=== PATIENT | male | born 1940 | race Caucasian/White ===

== ENCOUNTER 2017-07-01 09:14 | Inpatient (IN) | payer OTHER ==
[2017-07-01 09:57] LABS: ADD MAN DIFF? NO
[2017-07-01 09:58] LABS: BASOPHIL # 0.1 10^3/ul (0.0-0.1); BASOPHILS % 0.9 % (0.0-2.0); EOSINOPHILS # 0.2 10^3/ul (0.0-0.5); EOSINOPHILS % 1.8 % (0.0-7.0); HEMATOCRIT 45.5 % (42.0-52.0); HEMOGLOBIN 15.1 g/dl (14.0-18.0); LYMPHOCYTES # 2.1 10^3/ul (0.8-2.9); MEAN CORPUSCULAR HEMOGLOBIN 30.1 pg (29.0-33.0); MEAN CORPUSCULAR HGB CONC 33.2 g/dl (32.0-37.0); MEAN CORPUSCULAR VOLUME 90.8 fl (82.0-101.0); MEAN PLATELET VOLUME 9.6 fl (7.4-10.4); MONOCYTE # 0.6 10^3/ul (0.3-0.9); MONOCYTES % 6.5 % (0.0-11.0); NEUTROPHIL # 5.9 10^3/ul (1.6-7.5); NEUTROPHILS % 66.4 % (39.0-77.0); PLATELET COUNT 280 10^3/UL (140-415); RED BLOOD COUNT 5.01 10^6/ul (4.70-6.10); RED CELL DISTRIBUTION WIDTH 12.9 % (11.5-14.5)
[2017-07-01 09:58] LABS: WHITE BLOOD COUNT 8.9 10^3/ul (4.8-10.8)
[2017-07-01] MEDS: ASPIRIN 325 MG TAB PO (10:06)
[2017-07-01] MEDS: NITROGLYCERIN (SL) 0.4 MG TAB SL (10:06)
[2017-07-01 10:17] LABS: ANION GAP 16 (8-16); BLOOD UREA NITROGEN 22 mg/dl (7-20); CALCIUM 9.2 mg/dl (8.4-10.2); CARBON DIOXIDE 28 mmol/L (21-31); CHLORIDE 103 mmol/L (97-110); CREATINE KINASE 138 IU/L (23-200); CREATININE 1.13 mg/dl (0.61-1.24); GLUCOSE 104 mg/dl (70-220); POTASSIUM 5.1 mmol/L (3.5-5.1); SODIUM 142 mmol/L (135-144)
[2017-07-01 10:29] LABS: CK INDEX 2.5
[2017-07-01 10:30] LABS: B-TYPE NATRIURETIC PEPTIDE 324 PG/ML (0-450)
[2017-07-01 10:34] LABS: CK-MB 3.47 ng/ml (0.0-2.4)
[2017-07-01 10:36] LABS: TROPONIN-I 0.839 ng/ml (0.000-0.120)
[2017-07-01 10:39] LABS: TROPONIN-I 0.829 ng/ml (0.000-0.120)
[2017-07-01] MEDS ORDERED: ACETAMINOPHEN 325 MG TAB PO (11:30)
[2017-07-01] MEDS ORDERED: ONDANSETRON 4 MG INJ IV (11:30)
[2017-07-01] MEDS: SOD CHLORIDE 0.9% 500 ML IV (14:30)
[2017-07-01 14:32] LABS: CREATINE KINASE 103 IU/L (23-200); D-DIMER 296.04 ng/ml (<460)
[2017-07-01 14:37] LABS: INR 0.92; PROTIME 12.4 Sec (11.9-14.9)
[2017-07-01 14:43] LABS: CK INDEX 2.5
[2017-07-01 14:47] LABS: CK-MB 2.62 ng/ml (0.0-2.4)
[2017-07-01] MEDS: ATORVASTATIN 40 MG TAB PO (21:08)
[2017-07-01] MEDS: METOPROLOL 25 MG TAB PO (21:08)
[2017-07-01] MEDS: ENOXAPARIN 80 MG/0.8 ML SYG SC (21:09)
[2017-07-01 22:36] LABS: CREATINE KINASE 90 IU/L (23-200)
[2017-07-01 22:47] LABS: CK INDEX 2.3
[2017-07-01 22:49] LABS: CK-MB 2.05 ng/ml (0.0-2.4)
[2017-07-02] MEDS: PANTOPRAZOLE (EC) 40 MG TAB PO (05:39)
[2017-07-02] MEDS ORDERED: DIPHENHYDRAMINE 50 MG CAP PO (07:00)
[2017-07-02] MEDS ORDERED: DIAZEPAM 5 MG TAB PO (07:00)
[2017-07-02] MEDS: ASPIRIN 81 MG TAB NGT (08:28)
[2017-07-02] MEDS: METOPROLOL 25 MG TAB PO ×2 (08:28→20:54)
[2017-07-02] MEDS ORDERED: ENOXAPARIN 80 MG/0.8 ML SYG SC (09:00)
[2017-07-02 09:05] LABS: ADD MAN DIFF? NO
[2017-07-02 09:20] LABS: WHITE BLOOD COUNT 8.1 10^3/ul (4.8-10.8)
[2017-07-02 09:20] LABS: BASOPHIL # 0.1 10^3/ul (0.0-0.1); BASOPHILS % 0.9 % (0.0-2.0); EOSINOPHILS # 0.2 10^3/ul (0.0-0.5); EOSINOPHILS % 2.1 % (0.0-7.0); HEMATOCRIT 43.6 % (42.0-52.0); HEMOGLOBIN 14.5 g/dl (14.0-18.0); LYMPHOCYTES # 1.9 10^3/ul (0.8-2.9); LYMPHOCYTES % 23.7 % (15.0-51.0); MEAN CORPUSCULAR HGB CONC 33.3 g/dl (32.0-37.0); MEAN CORPUSCULAR VOLUME 90.1 fl (82.0-101.0); MEAN PLATELET VOLUME 9.4 fl (7.4-10.4); MONOCYTE # 0.5 10^3/ul (0.3-0.9); MONOCYTES % 6.5 % (0.0-11.0); NEUTROPHIL # 5.4 10^3/ul (1.6-7.5); NEUTROPHILS % 66.4 % (39.0-77.0); PLATELET COUNT 289 10^3/UL (140-415); RED BLOOD COUNT 4.84 10^6/ul (4.70-6.10); RED CELL DISTRIBUTION WIDTH 12.8 % (11.5-14.5)
[2017-07-02 09:27] LABS: CREATINE KINASE 83 IU/L (23-200)
[2017-07-02] MEDS ORDERED: LIDOCAINE 1% (MDV) 20 ML INJ (09:27)
[2017-07-02] MEDS ORDERED: MIDAZOLAM 1 MG/ML 2 ML INJ (09:27)
[2017-07-02] MEDS ORDERED: IODIXANOL LOCM 100 ML BTL (09:27)
[2017-07-02] MEDS ORDERED: HEPARIN 1000 UNITS/ML 10 ML INJ (09:27)
[2017-07-02] MEDS ORDERED: NITROGLYCERIN (IC) 100 MCG/ML INJ (09:28)
[2017-07-02] MEDS ORDERED: FENTAnyl 50 MCG/ML VIAL (09:28)
[2017-07-02] MEDS ORDERED: VERAPAMIL 5 MG INJ (09:28)
[2017-07-02] MEDS ORDERED: SOD CHLORIDE 0.9% 500 ML (09:29)
[2017-07-02 09:34] LABS: ALANINE AMINOTRANSFERASE 39 IU/L (13-69); ALBUMIN 4.3 g/dl (3.3-4.9); ALBUMIN/GLOBULIN RATIO 1.22; ALKALINE PHOSPHATASE 90 IU/L (42-121); ANION GAP 13 (8-16); ASPARTATE AMINO TRANSFERASE 40 IU/L (15-46); BILIRUBIN,INDIRECT 0.5 mg/dl (0-1.1); BILIRUBIN,TOTAL 0.5 mg/dl (0.2-1.3); BLOOD UREA NITROGEN 19 mg/dl (7-20); CALCIUM 9.3 mg/dl (8.4-10.2); CARBON DIOXIDE 31 mmol/L (21-31); CHLORIDE 101 mmol/L (97-110); CHOL/HDL RATIO 4.8 RATIO; CHOLESTEROL 146 mg/dl (100-200); CREATININE 1.15 mg/dl (0.61-1.24); GLUCOSE 108 mg/dl (70-220); HDL CHOLESTEROL 30 mg/dl (31-75); LDL CHOLESTEROL,CALCULATED 75 mg/dl; POTASSIUM 4.7 mmol/L (3.5-5.1); SODIUM 140 mmol/L (135-144); TOTAL PROTEIN 7.8 g/dl (6.1-8.1); TRIGLYCERIDES 205 mg/dl (0-149)
[2017-07-02 09:37] LABS: CK INDEX 2.2
[2017-07-02 09:41] LABS: FREE T4 (FREE THYROXINE) 1.29 ng/dl (0.78-2.44)
[2017-07-02 09:42] LABS: CK-MB 1.85 ng/ml (0.0-2.4)
[2017-07-02] MEDS: SOD CHLORIDE 0.9% 1,000 ML IV (10:48)
[2017-07-02 12:15] LABS: ADD MAN DIFF? NO
[2017-07-02 12:19] LABS: WHITE BLOOD COUNT 8.7 10^3/ul (4.8-10.8)
[2017-07-02 12:19] LABS: BASOPHIL # 0.1 10^3/ul (0.0-0.1); BASOPHILS % 0.8 % (0.0-2.0); EOSINOPHILS # 0.1 10^3/ul (0.0-0.5); EOSINOPHILS % 1.3 % (0.0-7.0); HEMATOCRIT 43.3 % (42.0-52.0); HEMOGLOBIN 14.4 g/dl (14.0-18.0); LYMPHOCYTES # 1.7 10^3/ul (0.8-2.9); LYMPHOCYTES % 19.6 % (15.0-51.0); MEAN CORPUSCULAR HEMOGLOBIN 30.1 pg (29.0-33.0); MEAN CORPUSCULAR HGB CONC 33.3 g/dl (32.0-37.0); MEAN CORPUSCULAR VOLUME 90.6 fl (82.0-101.0); MEAN PLATELET VOLUME 9.1 fl (7.4-10.4); MONOCYTE # 0.4 10^3/ul (0.3-0.9); NEUTROPHIL # 6.4 10^3/ul (1.6-7.5); PLATELET COUNT 272 10^3/UL (140-415); RED BLOOD COUNT 4.78 10^6/ul (4.70-6.10); RED CELL DISTRIBUTION WIDTH 12.7 % (11.5-14.5)
[2017-07-02] MEDS: HEPARIN 1000 UNITS/ML 10 ML INJ IV (12:30)
[2017-07-02] MEDS ORDERED: HEPARIN 1000 UNITS/ML 10 ML INJ IV (12:30)
[2017-07-02 12:34] LABS: CREATINE KINASE 75 IU/L (23-200)
[2017-07-02 12:47] LABS: CK INDEX 2.1; CK-MB 1.58 ng/ml (0.0-2.4)
[2017-07-02 12:57] LABS: INR 1.02; PROTIME 13.5 Sec (11.9-14.9); PT RATIO 1.1
[2017-07-02 13:05] LABS: PARTIAL THROMBOPLASTIN TIME 102.5 Sec (25.0-35.0)
[2017-07-02] MEDS: HEPARIN 25000 UNITS/250 ML 250 ML IV (14:15)
[2017-07-02] MEDS: ATORVASTATIN 40 MG TAB PO (20:53)
[2017-07-02 23:03] LABS: CREATINE KINASE 63 IU/L (23-200)
[2017-07-02 23:14] LABS: CK INDEX 1.9
[2017-07-02 23:15] LABS: CK-MB 1.22 ng/ml (0.0-2.4)
[2017-07-03 05:50] LABS: ADD MAN DIFF? NO
[2017-07-03 05:52] LABS: WHITE BLOOD COUNT 9.5 10^3/ul (4.8-10.8)
[2017-07-03 05:52] LABS: BASOPHIL # 0.1 10^3/ul (0.0-0.1); BASOPHILS % 0.5 % (0.0-2.0); EOSINOPHILS # 0.2 10^3/ul (0.0-0.5); EOSINOPHILS % 1.8 % (0.0-7.0); HEMATOCRIT 40.1 % (42.0-52.0); HEMOGLOBIN 13.4 g/dl (14.0-18.0); LYMPHOCYTES # 2.2 10^3/ul (0.8-2.9); LYMPHOCYTES % 22.7 % (15.0-51.0); MEAN CORPUSCULAR HGB CONC 33.4 g/dl (32.0-37.0); MEAN CORPUSCULAR VOLUME 89.9 fl (82.0-101.0); MEAN PLATELET VOLUME 9.1 fl (7.4-10.4); MONOCYTE # 0.7 10^3/ul (0.3-0.9); MONOCYTES % 7.6 % (0.0-11.0); NEUTROPHIL # 6.4 10^3/ul (1.6-7.5); NEUTROPHILS % 67.1 % (39.0-77.0); PLATELET COUNT 243 10^3/UL (140-415); RED BLOOD COUNT 4.46 10^6/ul (4.70-6.10); RED CELL DISTRIBUTION WIDTH 12.6 % (11.5-14.5)
[2017-07-03 06:14] LABS: ANION GAP 14 (8-16); BLOOD UREA NITROGEN 18 mg/dl (7-20); CALCIUM 8.4 mg/dl (8.4-10.2); CARBON DIOXIDE 26 mmol/L (21-31); CHLORIDE 105 mmol/L (97-110); CREATININE 0.97 mg/dl (0.61-1.24); GLUCOSE 106 mg/dl (70-220); MAGNESIUM 1.8 mg/dl (1.7-2.5); SODIUM 141 mmol/L (135-144)
[2017-07-03 06:18] LABS: INR 0.99; PROTIME 13.2 Sec (11.9-14.9)
[2017-07-03 06:22] LABS: PARTIAL THROMBOPLASTIN TIME 81.5 Sec (25.0-35.0)
[2017-07-03] MEDS: PANTOPRAZOLE (EC) 40 MG TAB PO (06:29)
[2017-07-03 06:37] LABS: CK-MB 1.12 ng/ml (0.0-2.4)
[2017-07-03 06:42] LABS: CK INDEX 1.9; CREATINE KINASE 59 IU/L (23-200)
[2017-07-03] MEDS ORDERED: TRANEXAMIC ACID 1,000 MG/10 ML VIAL (07:00)
[2017-07-03] MEDS ORDERED: ROCURONIUM 50 MG INJ ×2 (07:00→13:29)
[2017-07-03] MEDS ORDERED: MILRINONE LACTATE 20 MG/D5W 100 ML BAG (07:00)
[2017-07-03] MEDS: ASPIRIN 81 MG TAB NGT (07:50)
[2017-07-03] MEDS: METOPROLOL 25 MG TAB PO ×2 (07:52→11:22)
[2017-07-03] MEDS ORDERED: MAGNESIUM SULFATE 2 GM/50 ML 50 ML IVPB (08:30)
[2017-07-03] MEDS: MAGNESIUM SULFATE 1 GM/D5W 100 ML IVPB (08:50)
[2017-07-03] MEDS ORDERED: MILRINONE LACTATE 100 ML (13:20)
[2017-07-03] MEDS ORDERED: SODIUM CL BACTERIOSTATIC 30 ML INJ (13:26)
[2017-07-03] MEDS ORDERED: LIDOCAINE 2% (SDV) 5 ML INJ (13:29)
[2017-07-03] MEDS ORDERED: ETOMIDATE 20 MG INJ (13:29)
[2017-07-03] MEDS ORDERED: EPINEPHrine 4 MG in DEXTROSE 5% 246 ML IV (13:30)
[2017-07-03] MEDS ORDERED: SUCCINYLCHOLINE CHLORIDE 100 MG/5 ML SYG IV (13:30)
[2017-07-03] MEDS ORDERED: PHENYLephrine 20MG IN 250 ML 250 ML IV (13:30)
[2017-07-03] MEDS ORDERED: INSULIN HUMAN REGULAR 100 UNIT in SOD CHLORIDE 0.9% 99 ML IV (13:30)
[2017-07-03] MEDS ORDERED: MIDAZOLAM 5 ML ×2 (13:31)
[2017-07-03] MEDS ORDERED: HEPARIN 1000 UNITS/ML 10 ML INJ ×3 (13:36→16:46)
[2017-07-03] MEDS ORDERED: CEFAZOLIN 1 GM INJ (13:39)
[2017-07-03] MEDS ORDERED: NITROGLYCERIN 50 MG/D5W (PMX) 250 ML ×2 (13:41→20:27)
[2017-07-03] MEDS ORDERED: ALBUMIN HUMAN 25% 300 ML (13:41)
[2017-07-03] MEDS ORDERED: ALBUMIN HUMAN 25% 100 ML (13:53)
[2017-07-03] MEDS ORDERED: MANNITOL 20% 250 ML IV (13:53)
[2017-07-03] MEDS ORDERED: CA CHLORIDE 10% 10 ML SYRINGE (13:53)
[2017-07-03] MEDS ORDERED: NA BICARBONATE 8.4% 50 ML SYG ×2 (13:53→19:07)
[2017-07-03] MEDS ORDERED: MAGNESIUM SULFATE (MG) 50% 10 ML INJ (13:53)
[2017-07-03] MEDS ORDERED: PHENYLephrine 10 MG INJ (13:53)
[2017-07-03] MEDS ORDERED: LIDOCAINE 100 MG SYRINGE (13:53)
[2017-07-03] MEDS ORDERED: POTASSIUM CHLORIDE 40 MEQ INJ (13:53)
[2017-07-03] MEDS ORDERED: FUROSEMIDE 20 MG INJ (13:54)
[2017-07-03] MEDS ORDERED: NORepinephrine 8MG/250 ML (PMX 250 ML IV (14:00)
[2017-07-03] MEDS: HEPARIN 1000 UNITS/ML 10 ML INJ (15:43)
[2017-07-03] MEDS: PAPAVERINE 60 MG INJ (16:00)
[2017-07-03] MEDS ORDERED: PROTAMINE 250 MG INJ (16:28)
[2017-07-03] MEDS: GELATIN SIZE 100 SPONGE (17:49)
[2017-07-03] MEDS: VANCOMYCIN 1 GM INJ (17:49)
[2017-07-03 18:42] LABS: TYPE AND SCREEN 1
[2017-07-03 19:27] LABS: IMMEDIATE SPIN CROSSMATCH 1 7
[2017-07-03] MEDS ORDERED: PHENYLephrine (100 MCG/ML) 5ML SYG (19:31)
[2017-07-03] MEDS ORDERED: nitroGLYCerin 50 MG INJ (20:30)
[2017-07-03] MEDS ORDERED: morphine 10 MG INJ ×2 (20:53→21:10)
[2017-07-03] MEDS: ATORVASTATIN 40 MG TAB PO (21:00)
[2017-07-03 22:54] LABS: CREATINE KINASE 408 IU/L (23-200)
[2017-07-03 23:07] LABS: CK INDEX 4.2
[2017-07-03 23:20] LABS: Arterial Blood Gas Oxygen Sat 65.2 mmHG (95.0-100.0); Arterial COHb 0.3 % (0.0-3.0); Arterial Fraction of Oxyhgb 64.4 % (93.0-99.0); Arterial MetHb 0.9 % (0.0-1.5); Arterial Total Hemglobin 11.5 g/dl (12.0-18.0); MODE VENT - AC; MetHgb Mixed Venous 0.9 %; Mixed Venous COHb 0.3 %; Mixed Venous Fraction OxyHgb 64.4 %; Mixed Venous Oxygen Sat 65.2 mmHG (65.0-75.0); Mixed Venous Total Hemglobin 11.5 g/dl; Sample Type BLMV; Site A-Line
[2017-07-03 23:26] LABS: AADO2 Arterial 424.8 mmHg (7.0-24.0); Arterial Base Excess -4.5 mmol/L (-3.0-3); Arterial COHb 0.3 % (0.0-3.0); Arterial Fraction of Oxyhgb 95.8 % (93.0-99.0); Arterial HCO3 20.8 mmol/L (22.0-26.0); Arterial MetHb 0.9 % (0.0-1.5); Arterial Total Hemglobin 12.3 g/dl (12.0-18.0); Arterial pCO2 39.2 mmhg (35-45); MODE VENT - AC; Site A-Line
[2017-07-03] MEDS ORDERED: niCARdipine-NS 0.1MG/ML DRIP 200 ML IV (23:30)
[2017-07-03 23:56] LABS: ADD MAN DIFF? NO
[2017-07-03 23:57] LABS: BASOPHILS % 0.4 % (0.0-2.0); HEMATOCRIT 32.6 % (42.0-52.0); LYMPHOCYTES % 9.7 % (15.0-51.0); MEAN CORPUSCULAR HEMOGLOBIN 30.5 pg (29.0-33.0); MEAN CORPUSCULAR HGB CONC 33.7 g/dl (32.0-37.0); MEAN CORPUSCULAR VOLUME 90.3 fl (82.0-101.0); MEAN PLATELET VOLUME 9.9 fl (7.4-10.4); MONOCYTE # 0.6 10^3/ul (0.3-0.9); MONOCYTES % 5.1 % (0.0-11.0); NEUTROPHILS % 84.4 % (39.0-77.0); PLATELET COUNT 150 10^3/UL (140-415); RED BLOOD COUNT 3.61 10^6/ul (4.70-6.10); RED CELL DISTRIBUTION WIDTH 13.2 % (11.5-14.5)
[2017-07-03 23:57] LABS: WHITE BLOOD COUNT 10.7 10^3/ul (4.8-10.8)
[2017-07-04 00:09] LABS: INR 1.28; PROTIME 16.2 Sec (11.9-14.9); PT RATIO 1.3
[2017-07-04 00:10] LABS: PARTIAL THROMBOPLASTIN TIME 40.5 Sec (25.0-35.0)
[2017-07-04 00:12] LABS: ANION GAP 20 (8-16); BLOOD UREA NITROGEN 16 mg/dl (7-20); CALCIUM 10.9 mg/dl (8.4-10.2); CARBON DIOXIDE 24 mmol/L (21-31); CHLORIDE 106 mmol/L (97-110); CREATININE 1.28 mg/dl (0.61-1.24); GLUCOSE 155 mg/dl (70-220); MAGNESIUM 2.6 mg/dl (1.7-2.5); PHOSPHORUS 3.2 mg/dl (2.5-4.9); POTASSIUM 4.4 mmol/L (3.5-5.1); SODIUM 146 mmol/L (135-144)
[2017-07-04] MEDS ORDERED: NITROGLYCERIN 50 MG/D5W (PMX) 250 ML (00:24)
[2017-07-04] MEDS ORDERED: POTASSIUM CHLORIDE 40 MEQ in DEXTROSE 5%-0.225% NACL 1,000 ML IV (00:30)
[2017-07-04] MEDS ORDERED: DEXTROSE 50% 50 ML SYRINGE IV ×2 (00:30)
[2017-07-04] MEDS: NITROGLYCERIN 50 MG/D5W (PMX) 250 ML IV (00:38)
[2017-07-04] MEDS: CEFAZOLIN 1 GM/50 ML (PMX) 50 ML IVPB ×3 (00:51→17:15)
[2017-07-04] MEDS: DEXTROSE 5%-0.45% NACL 1,000 ML IV ×3 (00:54→21:00)
[2017-07-04] MEDS: ACCU-CHEK XX ×23 (00:54→23:00)
[2017-07-04] MEDS: INSULIN HUMAN REGULAR 100 UNIT in SOD CHLORIDE 0.9% 99 ML IV ×2 (01:37→16:53)
[2017-07-04] MEDS: PROPOFOL 100 ML IV ×4 (04:08→21:28)
[2017-07-04] MEDS: MILRINONE LACTATE 100 ML IV ×2 (04:25→23:18)
[2017-07-04 05:13] LABS: ADD MAN DIFF? NO
[2017-07-04] MEDS ORDERED: ALBUMIN HUMAN 5% 500 ML ×2 (05:21→17:14)
[2017-07-04] MEDS: ALBUMIN HUMAN 5% 250 ML IV ×6 (05:32→18:00)
[2017-07-04 05:35] LABS: INR 1.18; PROTIME 15.2 Sec (11.9-14.9); PT RATIO 1.2
[2017-07-04 05:36] LABS: WHITE BLOOD COUNT 10.4 10^3/ul (4.8-10.8)
[2017-07-04 05:36] LABS: ABNORMAL IP MESSAGE 1; BASOPHILS % 0.3 % (0.0-2.0); HEMATOCRIT 29.6 % (42.0-52.0); HEMOGLOBIN 10.2 g/dl (14.0-18.0); LYMPHOCYTES # 0.6 10^3/ul (0.8-2.9); LYMPHOCYTES % 5.7 % (15.0-51.0); MEAN CORPUSCULAR HEMOGLOBIN 30.3 pg (29.0-33.0); MEAN CORPUSCULAR HGB CONC 34.5 g/dl (32.0-37.0); MEAN CORPUSCULAR VOLUME 87.8 fl (82.0-101.0); MEAN PLATELET VOLUME 9.9 fl (7.4-10.4); MONOCYTE # 0.8 10^3/ul (0.3-0.9); MONOCYTES % 7.3 % (0.0-11.0); NEUTROPHILS % 86.3 % (39.0-77.0); PARTIAL THROMBOPLASTIN TIME 53.4 Sec (25.0-35.0); PLATELET COUNT 166 10^3/UL (140-415); POSITIVE DIFF @See below; RED BLOOD COUNT 3.37 10^6/ul (4.70-6.10); RED CELL DISTRIBUTION WIDTH 13.7 % (11.5-14.5)
[2017-07-04 05:37] LABS: ALANINE AMINOTRANSFERASE 35 IU/L (13-69); ALBUMIN 3.6 g/dl (3.3-4.9); ALBUMIN/GLOBULIN RATIO 1.56; ALKALINE PHOSPHATASE 47 IU/L (42-121); ANION GAP 17 (8-16); ASPARTATE AMINO TRANSFERASE 65 IU/L (15-46); BILIRUBIN,INDIRECT 1.2 mg/dl (0-1.1); BILIRUBIN,TOTAL 1.2 mg/dl (0.2-1.3); BLOOD UREA NITROGEN 21 mg/dl (7-20); CALCIUM 9.9 mg/dl (8.4-10.2); CARBON DIOXIDE 26 mmol/L (21-31); CHLORIDE 105 mmol/L (97-110); CREATININE 1.78 mg/dl (0.61-1.24); GLUCOSE 167 mg/dl (70-220); MAGNESIUM 2.3 mg/dl (1.7-2.5); POTASSIUM 4.3 mmol/L (3.5-5.1); SODIUM 144 mmol/L (135-144); TOTAL PROTEIN 5.9 g/dl (6.1-8.1)
[2017-07-04 05:38] LABS: CREATINE KINASE 574 IU/L (23-200)
[2017-07-04] MEDS: PANTOPRAZOLE (EC) 40 MG TAB PO (05:40)
[2017-07-04] MEDS: ACETAMINOPHEN 325 MG TAB PO ×2 (05:41→14:54)
[2017-07-04 05:45] LABS: CK INDEX 2.6
[2017-07-04] MEDS: morphine 2 MG INJ IV ×5 (07:38→20:29)
[2017-07-04 07:53] LABS: BAND NEUTROPHILS #M 2.2 10^3/ul (0.0-0.6); BAND NEUTROPHILS % (M) 22 % (0-4); ERYTHROBLAST% (NRBC) (M) 2 % (0-0); LYMPHOCYTES #M 1.1 10^3/ul (0.8-2.9); LYMPHOCYTES % (M) 11 % (15-51); MONOCYTE #M 0.3 10^3/ul (0.3-0.9); MONOCYTES % (M) 3 % (0-11); PLATELET ESTIMATE NORMAL; REACTIVE LYMPHOCYTES #M 0.1 10^3/ul (0.0-0.0); REACTIVE LYMPHOCYTES% (M) 1 % (0-0); SEG NEUT #M 6.8 10^3/ul (1.6-7.5); SEGMENTED NEUTROPHILS (M) % 63 % (39-77); SMUDGE%M 9 % (0-0)
[2017-07-04 08:27] LABS: AADO2 Arterial 239.1 mmHg (7.0-24.0); Arterial Base Excess -2.5 mmol/L (-3.0-3); Arterial Blood Gas Oxygen Sat 98.1 mmHG (95.0-100.0); Arterial COHb 0.3 % (0.0-3.0); Arterial Fraction of Oxyhgb 97.3 % (93.0-99.0); Arterial HCO3 21.4 mmol/L (22.0-26.0); Arterial MetHb 0.5 % (0.0-1.5); Arterial Total Hemglobin 10.4 g/dl (12.0-18.0); Arterial pCO2 33.6 mmhg (35-45); MODE VENT - AC; Site A-Line
[2017-07-04] MEDS: ASPIRIN 81 MG TAB NGT (08:40)
[2017-07-04] MEDS: METOPROLOL 25 MG TAB PO ×2 (08:40→21:10)
[2017-07-04 12:02] LABS: CREATINE KINASE 486 IU/L (23-200)
[2017-07-04 12:09] LABS: CK INDEX 1.7
[2017-07-04 12:18] LABS: CK-MB 8.47 ng/ml (0.0-2.4)
[2017-07-04] MEDS: ATORVASTATIN 40 MG TAB PO (21:10)
[2017-07-05] MEDS: morphine 2 MG INJ IV ×4 (00:16→22:34)
[2017-07-05] MEDS: ACCU-CHEK XX ×24 (01:04→23:11)
[2017-07-05] MEDS: NITROGLYCERIN 50 MG/D5W (PMX) 250 ML IV (04:03)
[2017-07-05 04:44] LABS: ADD MAN DIFF? NO
[2017-07-05 05:02] LABS: ANION GAP 16 (8-16); BLOOD UREA NITROGEN 33 mg/dl (7-20); CALCIUM 8.3 mg/dl (8.4-10.2); CARBON DIOXIDE 27 mmol/L (21-31); CHLORIDE 107 mmol/L (97-110); CREATININE 1.83 mg/dl (0.61-1.24); GLUCOSE 123 mg/dl (70-220); POTASSIUM 4.5 mmol/L (3.5-5.1); SODIUM 145 mmol/L (135-144)
[2017-07-05 05:10] LABS: Arterial Base Excess -1.8 mmol/L (-3.0-3); Arterial COHb 0.3 % (0.0-3.0); Arterial Fraction of Oxyhgb 93.3 % (93.0-99.0); Arterial HCO3 22.1 mmol/L (22.0-26.0); Arterial MetHb 0.4 % (0.0-1.5); Arterial Total Hemglobin 8.9 g/dl (12.0-18.0); Arterial pCO2 33.9 mmhg (35-45); MODE VENT - AC; Site A-Line
[2017-07-05 05:23] LABS: WHITE BLOOD COUNT 7.6 10^3/ul (4.8-10.8)
[2017-07-05 05:23] LABS: ABNORMAL IP MESSAGE 1; BASOPHILS % 0.3 % (0.0-2.0); EOSINOPHILS % 0.5 % (0.0-7.0); HEMATOCRIT 24.4 % (42.0-52.0); HEMOGLOBIN 8.2 g/dl (14.0-18.0); LYMPHOCYTES # 0.9 10^3/ul (0.8-2.9); LYMPHOCYTES % 11.7 % (15.0-51.0); MEAN CORPUSCULAR HEMOGLOBIN 30.1 pg (29.0-33.0); MEAN CORPUSCULAR HGB CONC 33.6 g/dl (32.0-37.0); MEAN CORPUSCULAR VOLUME 89.7 fl (82.0-101.0); MEAN PLATELET VOLUME 9.7 fl (7.4-10.4); MONOCYTE # 0.8 10^3/ul (0.3-0.9); MONOCYTES % 10.6 % (0.0-11.0); NEUTROPHIL # 5.9 10^3/ul (1.6-7.5); NEUTROPHILS % 76.8 % (39.0-77.0); PLATELET COUNT 92 10^3/UL (140-415); POSITIVE DIFF @See below; RED BLOOD COUNT 2.72 10^6/ul (4.70-6.10); RED CELL DISTRIBUTION WIDTH 14.4 % (11.5-14.5)
[2017-07-05] MEDS: PANTOPRAZOLE (EC) 40 MG TAB PO (06:14)
[2017-07-05] MEDS ORDERED: hydrALAzine 20 MG INJ (06:50)
[2017-07-05 06:57] LABS: MAGNESIUM 2.1 mg/dl (1.7-2.5)
[2017-07-05] MEDS: hydrALAzine 20 MG INJ IV (07:15)
[2017-07-05] MEDS: METOPROLOL 50 MG TAB PO ×2 (09:03→20:28)
[2017-07-05] MEDS: ASPIRIN 81 MG TAB NGT (09:03)
[2017-07-05] MEDS: ACETAMINOPHEN 325 MG TAB PO ×3 (09:51→22:03)
[2017-07-05] MEDS ORDERED: FUROSEMIDE 20 MG INJ IV (12:30)
[2017-07-05 12:52] LABS: IMMEDIATE SPIN CROSSMATCH 1
[2017-07-05] MEDS: PROPOFOL 100 ML IV ×2 (14:30→18:45)
[2017-07-05 14:57] LABS: SODIUM,URINE RANDOM 24 mmol/L (30-90)
[2017-07-05 14:57] LABS: CREATININE,URINE RANDOM 235.73 mg/dl (20-370)
[2017-07-05] MEDS: ALBUMIN HUMAN 25% 50 ML IV (15:05)
[2017-07-05] MEDS: FUROSEMIDE 40 MG INJ IV (15:38)
[2017-07-05] MEDS: DEXTROSE 5%-0.45% NACL 1,000 ML IV (17:48)
[2017-07-05] MEDS: SOD FERRIC GLUC COMPLX 125 MG in SOD CHLORIDE 0.9% 100 ML IVPB (18:45)
[2017-07-05 19:52] LABS: HEMATOCRIT 27.7 % (42.0-52.0); HEMOGLOBIN 9.4 g/dl (14.0-18.0)
[2017-07-05] MEDS: ATORVASTATIN 40 MG TAB PO (20:28)
[2017-07-05] MEDS: EPOETIN 3000 UNITS/ML (NON ESRD/NON ONCOLOGY) SC (21:13)
[2017-07-06] MEDS: ACCU-CHEK XX ×18 (01:07→17:11)
[2017-07-06 05:18] LABS: ADD MAN DIFF? NO
[2017-07-06 05:25] LABS: ABNORMAL IP MESSAGE 1; BASOPHILS % 0.1 % (0.0-2.0); EOSINOPHILS # 0.1 10^3/ul (0.0-0.5); EOSINOPHILS % 0.9 % (0.0-7.0); HEMATOCRIT 26.9 % (42.0-52.0); LYMPHOCYTES # 0.7 10^3/ul (0.8-2.9); LYMPHOCYTES % 10.5 % (15.0-51.0); MEAN CORPUSCULAR HEMOGLOBIN 30.3 pg (29.0-33.0); MEAN CORPUSCULAR HGB CONC 33.5 g/dl (32.0-37.0); MEAN CORPUSCULAR VOLUME 90.6 fl (82.0-101.0); MEAN PLATELET VOLUME 10.4 fl (7.4-10.4); MONOCYTE # 0.7 10^3/ul (0.3-0.9); MONOCYTES % 9.9 % (0.0-11.0); NEUTROPHIL # 5.5 10^3/ul (1.6-7.5); NEUTROPHILS % 78.2 % (39.0-77.0); PLATELET COUNT 98 10^3/UL (140-415); POSITIVE DIFF @See below; RED BLOOD COUNT 2.97 10^6/ul (4.70-6.10); RED CELL DISTRIBUTION WIDTH 14.6 % (11.5-14.5)
[2017-07-06 05:25] LABS: WHITE BLOOD COUNT 7.1 10^3/ul (4.8-10.8)
[2017-07-06 05:49] LABS: ANION GAP 17 (8-16); BLOOD UREA NITROGEN 38 mg/dl (7-20); CALCIUM 8.2 mg/dl (8.4-10.2); CARBON DIOXIDE 25 mmol/L (21-31); CHLORIDE 107 mmol/L (97-110); CREATININE 1.31 mg/dl (0.61-1.24); GLUCOSE 130 mg/dl (70-220); MAGNESIUM 2.2 mg/dl (1.7-2.5); PHOSPHORUS 3.4 mg/dl (2.5-4.9); POTASSIUM 3.8 mmol/L (3.5-5.1); SODIUM 145 mmol/L (135-144)
[2017-07-06 06:12] LABS: AADO2 Arterial 87.4 mmHg (7.0-24.0); Allen Test ACCEPTAB; Arterial Base Excess -3.8 mmol/L (-3.0-3); Arterial COHb 0.3 % (0.0-3.0); Arterial Fraction of Oxyhgb 95.4 % (93.0-99.0); Arterial HCO3 19.3 mmol/L (22.0-26.0); Arterial MetHb 0.3 % (0.0-1.5); Arterial Total Hemglobin 10.3 g/dl (12.0-18.0); Arterial pCO2 28.5 mmhg (35-45); MODE VENT - AC; Site Left Radial
[2017-07-06] MEDS: PANTOPRAZOLE (EC) 40 MG TAB PO (06:35)
[2017-07-06] MEDS: INSULIN HUMAN REGULAR 100 UNIT in SOD CHLORIDE 0.9% 99 ML IV (07:01)
[2017-07-06] MEDS: PROPOFOL 100 ML IV (08:05)
[2017-07-06] MEDS: ASPIRIN 81 MG TAB NGT (08:08)
[2017-07-06] MEDS: METOPROLOL 50 MG TAB PO ×2 (08:08→21:11)
[2017-07-06] MEDS: DEXMEDETOMIDINE HCL 200 MCG in SOD CHLORIDE 0.9% 48 ML IV ×3 (09:07→19:38)
[2017-07-06] MEDS: morphine 2 MG INJ IV (10:25)
[2017-07-06 11:49] LABS: AADO2 Arterial 99.2 mmHg (7.0-24.0); Arterial Base Excess -2.2 mmol/L (-3.0-3); Arterial Blood Gas Oxygen Sat 95.3 mmHG (95.0-100.0); Arterial COHb 0.3 % (0.0-3.0); Arterial Fraction of Oxyhgb 94.8 % (93.0-99.0); Arterial HCO3 20.9 mmol/L (22.0-26.0); Arterial MetHb 0.2 % (0.0-1.5); Arterial Total Hemglobin 10.4 g/dl (12.0-18.0); MODE MASK - CPAP; Site Right Brachial
[2017-07-06] MEDS: FUROSEMIDE 40 MG INJ IV (13:06)
[2017-07-06] MEDS: ALBUMIN HUMAN 25% 50 ML IV (13:06)
[2017-07-06] MEDS: DEXTROSE 5%-0.45% NACL 1,000 ML IV (14:18)
[2017-07-06] MEDS: SOD FERRIC GLUC COMPLX 125 MG in SOD CHLORIDE 0.9% 100 ML IVPB (17:57)
[2017-07-06] MEDS: INSULIN ASPART [NOVOLOG] 3 ML PEN SC ×2 (18:00→21:00)
[2017-07-06] MEDS: ONDANSETRON 4 MG INJ IV (19:40)
[2017-07-06] MEDS: ATORVASTATIN 40 MG TAB PO (21:11)
[2017-07-07] MEDS: INSULIN ASPART [NOVOLOG] 3 ML PEN SC ×5 (01:00→23:39)
[2017-07-07] MEDS: DEXMEDETOMIDINE HCL 200 MCG in SOD CHLORIDE 0.9% 48 ML IV (04:25)
[2017-07-07 05:48] LABS: ADD MAN DIFF? NO
[2017-07-07 05:49] LABS: Allen Test ACCEPTAB; Arterial Base Excess -2.6 mmol/L (-3.0-3); Arterial Blood Gas Oxygen Sat 95.5 mmHG (95.0-100.0); Arterial COHb 0.3 % (0.0-3.0); Arterial HCO3 20.9 mmol/L (22.0-26.0); Arterial MetHb 0.2 % (0.0-1.5); Arterial Total Hemglobin 10.2 g/dl (12.0-18.0); Arterial pCO2 31.5 mmhg (35-45); MODE NASAL CANNULA; Site Right Radial
[2017-07-07 06:00] LABS: BASOPHILS % 0.3 % (0.0-2.0); EOSINOPHILS # 0.1 10^3/ul (0.0-0.5); EOSINOPHILS % 0.7 % (0.0-7.0); HEMATOCRIT 25.4 % (42.0-52.0); HEMOGLOBIN 8.6 g/dl (14.0-18.0); LYMPHOCYTES # 0.7 10^3/ul (0.8-2.9); LYMPHOCYTES % 9.8 % (15.0-51.0); MEAN CORPUSCULAR HEMOGLOBIN 30.9 pg (29.0-33.0); MEAN CORPUSCULAR HGB CONC 33.9 g/dl (32.0-37.0); MEAN CORPUSCULAR VOLUME 91.4 fl (82.0-101.0); MEAN PLATELET VOLUME 10.5 fl (7.4-10.4); MONOCYTE # 0.7 10^3/ul (0.3-0.9); MONOCYTES % 10.2 % (0.0-11.0); NEUTROPHIL # 5.5 10^3/ul (1.6-7.5); NEUTROPHILS % 78.6 % (39.0-77.0); PLATELET COUNT 116 10^3/UL (140-415); RED BLOOD COUNT 2.78 10^6/ul (4.70-6.10); RED CELL DISTRIBUTION WIDTH 14.5 % (11.5-14.5)
[2017-07-07 06:00] LABS: WHITE BLOOD COUNT 6.9 10^3/ul (4.8-10.8)
[2017-07-07] MEDS: PANTOPRAZOLE (EC) 40 MG TAB PO (06:31)
[2017-07-07 06:36] LABS: ANION GAP 13 (8-16); BLOOD UREA NITROGEN 42 mg/dl (7-20); CALCIUM 7.9 mg/dl (8.4-10.2); CARBON DIOXIDE 27 mmol/L (21-31); CHLORIDE 109 mmol/L (97-110); CREATININE 1.22 mg/dl (0.61-1.24); GLUCOSE 183 mg/dl (70-220); POTASSIUM 3.7 mmol/L (3.5-5.1); SODIUM 145 mmol/L (135-144)
[2017-07-07] MEDS: DEXTROSE 5%-0.45% NACL 1,000 ML IV (08:08)
[2017-07-07] MEDS: ASPIRIN 81 MG TAB NGT (08:08)
[2017-07-07] MEDS: METOPROLOL 50 MG TAB PO ×2 (08:09→21:00)
[2017-07-07] MEDS: morphine 2 MG INJ IV ×4 (09:22→23:41)
[2017-07-07] MEDS: FUROSEMIDE 20 MG INJ IV (11:51)
[2017-07-07] MEDS: CEFTRIAXONE 2 GM/50 ML (PMX) 50 ML IVPB (12:21)
[2017-07-07] MEDS: SOD FERRIC GLUC COMPLX 125 MG in SOD CHLORIDE 0.9% 100 ML IVPB (16:17)
[2017-07-07] MEDS: EPOETIN 3000 UNITS/ML (NON ESRD/NON ONCOLOGY) SC (16:19)
[2017-07-07] MEDS: NITROGLYCERIN (SL) 0.4 MG TAB SL (18:22)
[2017-07-07] MEDS: AL HYDROX/MG HYDROX/SIMETH 30 ML CUP PO (18:34)
[2017-07-07] MEDS: ACETAMINOPHEN 325 MG TAB PO (20:59)
[2017-07-07] MEDS: ATORVASTATIN 40 MG TAB PO (21:00)
[2017-07-08] MEDS: DEXTROSE 5%-0.45% NACL 1,000 ML IV ×2 (04:26→22:45)
[2017-07-08] MEDS: morphine 2 MG INJ IV ×2 (04:27→22:30)
[2017-07-08] MEDS: PANTOPRAZOLE (EC) 40 MG TAB PO (05:32)
[2017-07-08 05:40] LABS: ADD MAN DIFF? NO
[2017-07-08] MEDS: INSULIN ASPART [NOVOLOG] 3 ML PEN SC ×4 (05:44→23:14)
[2017-07-08 05:57] LABS: WHITE BLOOD COUNT 9.3 10^3/ul (4.8-10.8)
[2017-07-08 05:57] LABS: BASOPHILS % 0.3 % (0.0-2.0); EOSINOPHILS # 0.2 10^3/ul (0.0-0.5); EOSINOPHILS % 2.2 % (0.0-7.0); HEMATOCRIT 28.4 % (42.0-52.0); HEMOGLOBIN 9.3 g/dl (14.0-18.0); LYMPHOCYTES # 1.1 10^3/ul (0.8-2.9); LYMPHOCYTES % 11.3 % (15.0-51.0); MEAN CORPUSCULAR HGB CONC 32.7 g/dl (32.0-37.0); MEAN CORPUSCULAR VOLUME 91.6 fl (82.0-101.0); MEAN PLATELET VOLUME 10.2 fl (7.4-10.4); MONOCYTES % 10.6 % (0.0-11.0); NEUTROPHILS % 74.8 % (39.0-77.0); PLATELET COUNT 168 10^3/UL (140-415); RED CELL DISTRIBUTION WIDTH 14.5 % (11.5-14.5)
[2017-07-08 06:17] LABS: ANION GAP 12 (8-16); BLOOD UREA NITROGEN 33 mg/dl (7-20); CALCIUM 8.1 mg/dl (8.4-10.2); CARBON DIOXIDE 30 mmol/L (21-31); CHLORIDE 106 mmol/L (97-110); CREATININE 1.03 mg/dl (0.61-1.24); GLUCOSE 132 mg/dl (70-220); POTASSIUM 3.6 mmol/L (3.5-5.1); SODIUM 144 mmol/L (135-144)
[2017-07-08] MEDS: METOPROLOL 50 MG TAB PO ×2 (08:56→20:21)
[2017-07-08] MEDS: ASPIRIN 81 MG TAB NGT (08:57)
[2017-07-08] MEDS: CEFTRIAXONE 2 GM/50 ML (PMX) 50 ML IVPB (14:08)
[2017-07-08] MEDS: SOD FERRIC GLUC COMPLX 125 MG in SOD CHLORIDE 0.9% 100 ML IVPB (17:25)
[2017-07-08] MEDS ORDERED: GLUCOSE GEL 15 GRAM TUBE BUCCAL (18:00)
[2017-07-08] MEDS ORDERED: GLUCOSE GEL 15 GRAM TUBE PO ×2 (18:00)
[2017-07-08] MEDS ORDERED: DEXTROSE 50% 50 ML SYRINGE IV ×2 (18:00)
[2017-07-08] MEDS ORDERED: GLUCAGON 1 MG INJ IM (18:00)
[2017-07-08] MEDS: ATORVASTATIN 40 MG TAB PO (20:20)
[2017-07-08] MEDS: POTASSIUM CHLORIDE (SR) 20 MEQ TAB PO (23:16)
[2017-07-09] MEDS: morphine 2 MG INJ IV ×9 (00:27→22:57)
[2017-07-09] MEDS: ALBUTEROL/IPRATROPIUM (NEB) 3 ML AMP HHN ×5 (01:33→21:02)
[2017-07-09 05:16] LABS: ADD MAN DIFF? NO
[2017-07-09 05:27] LABS: BASOPHILS % 0.3 % (0.0-2.0); EOSINOPHILS # 0.2 10^3/ul (0.0-0.5); EOSINOPHILS % 1.8 % (0.0-7.0); HEMATOCRIT 23.3 % (42.0-52.0); HEMOGLOBIN 7.7 g/dl (14.0-18.0); LYMPHOCYTES # 1.1 10^3/ul (0.8-2.9); LYMPHOCYTES % 11.8 % (15.0-51.0); MEAN CORPUSCULAR HEMOGLOBIN 30.4 pg (29.0-33.0); MEAN CORPUSCULAR VOLUME 92.1 fl (82.0-101.0); MEAN PLATELET VOLUME 9.7 fl (7.4-10.4); MONOCYTES % 10.2 % (0.0-11.0); NEUTROPHIL # 7.1 10^3/ul (1.6-7.5); NEUTROPHILS % 74.6 % (39.0-77.0); PLATELET COUNT 169 10^3/UL (140-415); RED BLOOD COUNT 2.53 10^6/ul (4.70-6.10); RED CELL DISTRIBUTION WIDTH 14.3 % (11.5-14.5)
[2017-07-09 05:27] LABS: WHITE BLOOD COUNT 9.4 10^3/ul (4.8-10.8)
[2017-07-09] MEDS: LORAZEPAM 2 MG INJ IV ×4 (05:27→21:20)
[2017-07-09 05:37] LABS: AADO2 Arterial 81.5 mmHg (7.0-24.0); Allen Test ACCEPTAB; Arterial Base Excess -0.4 mmol/L (-3.0-3); Arterial Blood Gas Oxygen Sat 93.8 mmHG (95.0-100.0); Arterial COHb 0.2 % (0.0-3.0); Arterial Fraction of Oxyhgb 93.3 % (93.0-99.0); Arterial HCO3 23.2 mmol/L (22.0-26.0); Arterial MetHb 0.3 % (0.0-1.5); Arterial Total Hemglobin 10.4 g/dl (12.0-18.0); Arterial pCO2 33.9 mmhg (35-45); MODE NASAL CANNULA; Site Right Radial
[2017-07-09] MEDS: INSULIN ASPART [NOVOLOG] 3 ML PEN SC ×3 (06:00→17:00)
[2017-07-09] MEDS: PANTOPRAZOLE (EC) 40 MG TAB PO (06:05)
[2017-07-09] MEDS: METOPROLOL 50 MG TAB PO ×2 (08:44→21:07)
[2017-07-09] MEDS: ASPIRIN 81 MG TAB NGT (08:44)
[2017-07-09 08:45] LABS: ANION GAP 13 (8-16); BLOOD UREA NITROGEN 23 mg/dl (7-20); CALCIUM 7.9 mg/dl (8.4-10.2); CARBON DIOXIDE 28 mmol/L (21-31); CHLORIDE 104 mmol/L (97-110); CREATININE 0.94 mg/dl (0.61-1.24); GLUCOSE 122 mg/dl (70-220); POTASSIUM 3.7 mmol/L (3.5-5.1); SODIUM 141 mmol/L (135-144)
[2017-07-09 10:26] LABS: IMMEDIATE SPIN CROSSMATCH 1 1
[2017-07-09] MEDS: CEFTRIAXONE 2 GM/50 ML (PMX) 50 ML IVPB (13:54)
[2017-07-09 13:59] LABS: AMYLASE 285 U/L (11-123)
[2017-07-09 13:59] LABS: LIPASE 1000 U/L (23-300)
[2017-07-09] MEDS: DEXAMETHASONE 4 MG/ML 1 ML INJ IV ×2 (16:36→22:13)
[2017-07-09] MEDS: SOD FERRIC GLUC COMPLX 125 MG in SOD CHLORIDE 0.9% 100 ML IVPB (16:41)
[2017-07-09] MEDS: DEXTROSE 5%-0.45% NACL 1,000 ML IV (17:44)
[2017-07-09] MEDS: ATORVASTATIN 40 MG TAB PO (21:07)
[2017-07-10] MEDS: INSULIN ASPART [NOVOLOG] 3 ML PEN SC ×4 (00:41→17:11)
[2017-07-10] MEDS: LORAZEPAM 2 MG INJ IV (02:26)
[2017-07-10] MEDS: DEXTROSE 5%-0.45% NACL 1,000 ML IV ×2 (03:53→12:55)
[2017-07-10] MEDS: morphine 2 MG INJ IV (04:03)
[2017-07-10] MEDS: DEXAMETHASONE 4 MG/ML 1 ML INJ IV (05:47)
[2017-07-10] MEDS: PANTOPRAZOLE (EC) 40 MG TAB PO (05:47)
[2017-07-10] MEDS: ASPIRIN 81 MG TAB NGT (09:50)
[2017-07-10] MEDS: METOPROLOL 50 MG TAB PO ×2 (09:50→20:39)
[2017-07-10] MEDS: CEFTRIAXONE 2 GM/50 ML (PMX) 50 ML IVPB (12:55)
[2017-07-10 13:47] LABS: ADD MAN DIFF? NO
[2017-07-10 13:49] LABS: WHITE BLOOD COUNT 12.8 10^3/ul (4.8-10.8)
[2017-07-10 13:49] LABS: BASOPHILS % 0.2 % (0.0-2.0); EOSINOPHILS % 0.1 % (0.0-7.0); HEMATOCRIT 28.5 % (42.0-52.0); HEMOGLOBIN 9.7 g/dl (14.0-18.0); LYMPHOCYTES # 0.7 10^3/ul (0.8-2.9); LYMPHOCYTES % 5.8 % (15.0-51.0); MEAN CORPUSCULAR VOLUME 91.1 fl (82.0-101.0); MEAN PLATELET VOLUME 9.5 fl (7.4-10.4); MONOCYTE # 0.6 10^3/ul (0.3-0.9); MONOCYTES % 4.9 % (0.0-11.0); NEUTROPHILS % 85.6 % (39.0-77.0); PLATELET COUNT 226 10^3/UL (140-415); RED BLOOD COUNT 3.13 10^6/ul (4.70-6.10); RED CELL DISTRIBUTION WIDTH 14.6 % (11.5-14.5)
[2017-07-10] MEDS: EPOETIN 3000 UNITS/ML (NON ESRD/NON ONCOLOGY) SC (17:11)
[2017-07-10] MEDS: ATORVASTATIN 40 MG TAB PO (20:39)
[2017-07-11] MEDS: INSULIN ASPART [NOVOLOG] 3 ML PEN SC ×2 (00:02→06:00)
[2017-07-11] MEDS: DEXTROSE 5%-0.45% NACL 1,000 ML IV ×2 (01:15→08:15)
[2017-07-11 05:23] LABS: ADD MAN DIFF? NO
[2017-07-11 05:35] LABS: BASOPHILS % 0.1 % (0.0-2.0); EOSINOPHILS # 0.1 10^3/ul (0.0-0.5); EOSINOPHILS % 0.6 % (0.0-7.0); HEMATOCRIT 30.3 % (42.0-52.0); HEMOGLOBIN 10.1 g/dl (14.0-18.0); LYMPHOCYTES # 1.3 10^3/ul (0.8-2.9); LYMPHOCYTES % 8.8 % (15.0-51.0); MEAN CORPUSCULAR HEMOGLOBIN 30.3 pg (29.0-33.0); MEAN CORPUSCULAR HGB CONC 33.3 g/dl (32.0-37.0); MEAN PLATELET VOLUME 10.3 fl (7.4-10.4); MONOCYTE # 1.3 10^3/ul (0.3-0.9); MONOCYTES % 8.8 % (0.0-11.0); NEUTROPHIL # 11.6 10^3/ul (1.6-7.5); NEUTROPHILS % 77.6 % (39.0-77.0); PLATELET COUNT 238 10^3/UL (140-415); RED BLOOD COUNT 3.33 10^6/ul (4.70-6.10); RED CELL DISTRIBUTION WIDTH 14.6 % (11.5-14.5)
[2017-07-11 06:00] LABS: ALANINE AMINOTRANSFERASE 68 IU/L (13-69); ALBUMIN 3.1 g/dl (3.3-4.9); ALKALINE PHOSPHATASE 74 IU/L (42-121); AMYLASE 450 U/L (11-123); ANION GAP 12 (8-16); ASPARTATE AMINO TRANSFERASE 65 IU/L (15-46); BILIRUBIN,INDIRECT 1.1 mg/dl (0-1.1); BILIRUBIN,TOTAL 1.1 mg/dl (0.2-1.3); BLOOD UREA NITROGEN 20 mg/dl (7-20); CALCIUM 8.2 mg/dl (8.4-10.2); CARBON DIOXIDE 28 mmol/L (21-31); CHLORIDE 106 mmol/L (97-110); CREATININE 0.81 mg/dl (0.61-1.24); GLUCOSE 141 mg/dl (70-220); LIPASE 1551 U/L (23-300); POTASSIUM 3.5 mmol/L (3.5-5.1); SODIUM 142 mmol/L (135-144); TOTAL PROTEIN 5.9 g/dl (6.1-8.1)
[2017-07-11] MEDS: PANTOPRAZOLE (EC) 40 MG TAB PO (06:26)
[2017-07-11] MEDS: METOPROLOL 50 MG TAB PO (08:15)
[2017-07-11] MEDS: ASPIRIN 81 MG TAB NGT (08:15)
[2017-07-11] MEDS: ACETAMINOPHEN 325 MG TAB PO ×2 (08:15→21:34)
[2017-07-11] MEDS: morphine 2 MG INJ IV ×3 (08:16→15:06)
[2017-07-11] MEDS: ACCU-CHEK XX ×3 (11:00→20:30)
[2017-07-11] MEDS: Insulin NOVOLOG SS MILD Algorithm (SS with meals and bedtime) SC ×3 (11:00→20:30)
[2017-07-11] MEDS ORDERED: INSULIN ASPART [NOVOLOG] 3 ML PEN SC (11:00)
[2017-07-11] MEDS: ONDANSETRON 4 MG INJ IV (15:06)
[2017-07-11] MEDS: METOPROLOL 25 MG TAB PO (20:26)
[2017-07-11] MEDS: ATORVASTATIN 40 MG TAB PO (20:26)
[2017-07-12] MEDS: ACCU-CHEK XX ×5 (02:42→20:47)
[2017-07-12] MEDS: DEXTROSE 5%-0.45% NACL 1,000 ML IV ×2 (04:24→08:41)
[2017-07-12] MEDS: morphine 2 MG INJ IV ×2 (04:56→08:44)
[2017-07-12] MEDS: PANTOPRAZOLE (EC) 40 MG TAB PO (05:48)
[2017-07-12] MEDS: Insulin NOVOLOG SS MILD Algorithm (SS with meals and bedtime) SC ×4 (07:30→20:59)
[2017-07-12 07:35] LABS: ADD MAN DIFF? NO
[2017-07-12 07:39] LABS: WHITE BLOOD COUNT 14.4 10^3/ul (4.8-10.8)
[2017-07-12 07:39] LABS: ABNORMAL IP MESSAGE 1; BASOPHIL # 0.1 10^3/ul (0.0-0.1); BASOPHILS % 0.8 % (0.0-2.0); EOSINOPHILS # 0.5 10^3/ul (0.0-0.5); EOSINOPHILS % 3.6 % (0.0-7.0); HEMATOCRIT 38.7 % (42.0-52.0); HEMOGLOBIN 12.7 g/dl (14.0-18.0); LYMPHOCYTES # 1.8 10^3/ul (0.8-2.9); LYMPHOCYTES % 12.2 % (15.0-51.0); MEAN CORPUSCULAR HEMOGLOBIN 30.2 pg (29.0-33.0); MEAN CORPUSCULAR HGB CONC 32.8 g/dl (32.0-37.0); MEAN CORPUSCULAR VOLUME 92.1 fl (82.0-101.0); MEAN PLATELET VOLUME 8.9 fl (7.4-10.4); MONOCYTE # 1.1 10^3/ul (0.3-0.9); MONOCYTES % 7.7 % (0.0-11.0); NEUTROPHILS % 69.9 % (39.0-77.0); NUCLEATED RED BLOOD CELLS% 0.2 /100WBC (0.0-0.0); PLATELET COUNT 373 10^3/UL (140-415); POSITIVE DIFF @See below; RED CELL DISTRIBUTION WIDTH 14.6 % (11.5-14.5)
[2017-07-12 08:10] LABS: ANION GAP 15 (8-16); BLOOD UREA NITROGEN 15 mg/dl (7-20); CALCIUM 8.5 mg/dl (8.4-10.2); CARBON DIOXIDE 27 mmol/L (21-31); CHLORIDE 100 mmol/L (97-110); CREATININE 0.91 mg/dl (0.61-1.24); GLUCOSE 104 mg/dl (70-220); LIPASE 1468 U/L (23-300); POTASSIUM 3.4 mmol/L (3.5-5.1); SODIUM 139 mmol/L (135-144)
[2017-07-12 08:10] LABS: AMYLASE 584 U/L (11-123)
[2017-07-12] MEDS: ASPIRIN 81 MG TAB NGT (08:43)
[2017-07-12] MEDS: METOPROLOL 25 MG TAB PO ×2 (08:44→20:57)
[2017-07-12] MEDS: ONDANSETRON 4 MG INJ IV (08:44)
[2017-07-12] MEDS: ACETAMINOPHEN 325 MG TAB PO ×2 (12:56→19:30)
[2017-07-12] MEDS: POTASSIUM CHLORIDE (SR) 20 MEQ TAB PO (13:00)
[2017-07-12] MEDS: EPOETIN 3000 UNITS/ML (NON ESRD/NON ONCOLOGY) SC (16:37)
[2017-07-12] MEDS: morphine LIQ (10 MG/5 ML) CUP PO (16:41)
[2017-07-12] MEDS ORDERED: BISACODYL 10 MG SUPP PR (18:00)
[2017-07-12] MEDS: ATORVASTATIN 40 MG TAB PO (20:56)
[2017-07-13] MEDS: DEXTROSE 5%-0.45% NACL 1,000 ML IV (00:32)
[2017-07-13] MEDS: ACCU-CHEK XX ×5 (02:00→21:00)
[2017-07-13] MEDS: PANTOPRAZOLE (EC) 40 MG TAB PO (05:15)
[2017-07-13 06:39] LABS: ADD MAN DIFF? NO
[2017-07-13 06:50] LABS: WHITE BLOOD COUNT 14.5 10^3/ul (4.8-10.8)
[2017-07-13 06:50] LABS: BASOPHIL # 0.1 10^3/ul (0.0-0.1); BASOPHILS % 0.6 % (0.0-2.0); EOSINOPHILS # 0.4 10^3/ul (0.0-0.5); EOSINOPHILS % 2.8 % (0.0-7.0); HEMATOCRIT 33.6 % (42.0-52.0); HEMOGLOBIN 11.1 g/dl (14.0-18.0); LYMPHOCYTES # 1.5 10^3/ul (0.8-2.9); LYMPHOCYTES % 10.6 % (15.0-51.0); MEAN CORPUSCULAR HEMOGLOBIN 30.5 pg (29.0-33.0); MEAN CORPUSCULAR VOLUME 92.3 fl (82.0-101.0); MEAN PLATELET VOLUME 8.9 fl (7.4-10.4); MONOCYTE # 0.9 10^3/ul (0.3-0.9); MONOCYTES % 6.3 % (0.0-11.0); NEUTROPHIL # 10.9 10^3/ul (1.6-7.5); NEUTROPHILS % 75.1 % (39.0-77.0); NUCLEATED RED BLOOD CELLS% 0.1 /100WBC (0.0-0.0); PLATELET COUNT 368 10^3/UL (140-415); RED BLOOD COUNT 3.64 10^6/ul (4.70-6.10); RED CELL DISTRIBUTION WIDTH 14.5 % (11.5-14.5)
[2017-07-13 07:15] LABS: AMYLASE 334 U/L (11-123); ANION GAP 12 (8-16); BLOOD UREA NITROGEN 14 mg/dl (7-20); CALCIUM 8.3 mg/dl (8.4-10.2); CARBON DIOXIDE 30 mmol/L (21-31); CHLORIDE 102 mmol/L (97-110); CREATININE 0.85 mg/dl (0.61-1.24); GLUCOSE 124 mg/dl (70-220); LIPASE 958 U/L (23-300); POTASSIUM 4.5 mmol/L (3.5-5.1); SODIUM 139 mmol/L (135-144)
[2017-07-13] MEDS: Insulin NOVOLOG SS MILD Algorithm (SS with meals and bedtime) SC ×4 (07:30→21:48)
[2017-07-13] MEDS: POTASSIUM CHLORIDE (SR) 20 MEQ TAB PO (08:19)
[2017-07-13] MEDS: ASPIRIN 81 MG TAB NGT (08:19)
[2017-07-13] MEDS: METOPROLOL 25 MG TAB PO ×2 (08:20→21:46)
[2017-07-13] MEDS: FUROSEMIDE 20 MG INJ IV (08:20)
[2017-07-13] MEDS: ACETAMINOPHEN 325 MG TAB PO (08:21)
[2017-07-13] MEDS: POLYETHYLENE GLYCOL 17 GM PACKET PO (11:13)
[2017-07-13] MEDS ORDERED: VANCOMYCIN IV PER PHARMACY XX (11:30)
[2017-07-13] MEDS: VANCOMYCIN 1.75 GM in SOD CHLORIDE 0.9% 500 ML IVPB (12:47)
[2017-07-13 13:42] LABS: OCCULT BLOOD STOOL NEGATIVE (NEGATIVE)
[2017-07-13] MEDS: LUBIPROSTONE 24 MCG CAP PO ×3 (14:02→21:45)
[2017-07-13] MEDS: ATORVASTATIN 40 MG TAB PO (21:45)
[2017-07-13] MEDS: morphine LIQ (10 MG/5 ML) CUP PO (21:54)
[2017-07-14] MEDS: VANCOMYCIN 750 MG in DEXTROSE 5% 150 ML IVPB ×2 (01:03→13:34)
[2017-07-14] MEDS: ACCU-CHEK XX ×5 (02:02→20:35)
[2017-07-14] MEDS: PANTOPRAZOLE (EC) 40 MG TAB PO (05:08)
[2017-07-14 06:27] LABS: ADD MAN DIFF? NO
[2017-07-14 06:36] LABS: BASOPHIL # 0.1 10^3/ul (0.0-0.1); BASOPHILS % 0.6 % (0.0-2.0); EOSINOPHILS # 0.4 10^3/ul (0.0-0.5); EOSINOPHILS % 2.4 % (0.0-7.0); HEMOGLOBIN 11.5 g/dl (14.0-18.0); LYMPHOCYTES # 1.7 10^3/ul (0.8-2.9); LYMPHOCYTES % 10.9 % (15.0-51.0); MEAN CORPUSCULAR HEMOGLOBIN 30.3 pg (29.0-33.0); MEAN CORPUSCULAR HGB CONC 32.9 g/dl (32.0-37.0); MEAN CORPUSCULAR VOLUME 92.1 fl (82.0-101.0); MEAN PLATELET VOLUME 8.7 fl (7.4-10.4); MONOCYTES % 6.6 % (0.0-11.0); NEUTROPHIL # 11.8 10^3/ul (1.6-7.5); NEUTROPHILS % 75.9 % (39.0-77.0); PLATELET COUNT 406 10^3/UL (140-415); RED CELL DISTRIBUTION WIDTH 14.7 % (11.5-14.5)
[2017-07-14 06:36] LABS: WHITE BLOOD COUNT 15.5 10^3/ul (4.8-10.8)
[2017-07-14 07:03] LABS: AMYLASE 237 U/L (11-123); ANION GAP 11 (8-16); BLOOD UREA NITROGEN 14 mg/dl (7-20); CALCIUM 8.1 mg/dl (8.4-10.2); CARBON DIOXIDE 27 mmol/L (21-31); CHLORIDE 105 mmol/L (97-110); GLUCOSE 116 mg/dl (70-220); LIPASE 545 U/L (23-300); POTASSIUM 3.7 mmol/L (3.5-5.1); SODIUM 139 mmol/L (135-144)
[2017-07-14] MEDS: Insulin NOVOLOG SS MILD Algorithm (SS with meals and bedtime) SC ×4 (07:30→20:35)
[2017-07-14] MEDS: METOPROLOL 25 MG TAB PO ×2 (08:36→20:30)
[2017-07-14] MEDS: FUROSEMIDE 20 MG INJ IV (08:37)
[2017-07-14] MEDS: POLYETHYLENE GLYCOL 17 GM PACKET PO (08:37)
[2017-07-14] MEDS: POTASSIUM CHLORIDE (SR) 20 MEQ TAB PO (08:37)
[2017-07-14] MEDS: ASPIRIN 81 MG TAB NGT (08:38)
[2017-07-14] MEDS: ACETAMINOPHEN 325 MG TAB PO ×2 (10:26→20:29)
[2017-07-14] MEDS: DEXTROSE 5%-0.45% NACL 1,000 ML IV (14:43)
[2017-07-14] MEDS: ATORVASTATIN 40 MG TAB PO (20:29)
[2017-07-14] MEDS: DOXYCYCLINE 100 MG TAB PO (20:29)
[2017-07-14] MEDS: LUBIPROSTONE 24 MCG CAP PO (20:29)
[2017-07-15] MEDS: ACCU-CHEK XX ×5 (01:34→21:01)
[2017-07-15] MEDS: ACETAMINOPHEN 325 MG TAB PO ×3 (05:07→18:15)
[2017-07-15] MEDS: PANTOPRAZOLE (EC) 40 MG TAB PO (05:07)
[2017-07-15] MEDS: DEXTROSE 5%-0.45% NACL 1,000 ML IV (05:08)
[2017-07-15 06:22] LABS: ADD MAN DIFF? NO
[2017-07-15 06:26] LABS: WHITE BLOOD COUNT 16.2 10^3/ul (4.8-10.8)
[2017-07-15 06:26] LABS: BASOPHIL # 0.1 10^3/ul (0.0-0.1); BASOPHILS % 0.5 % (0.0-2.0); EOSINOPHILS # 0.4 10^3/ul (0.0-0.5); EOSINOPHILS % 2.3 % (0.0-7.0); HEMATOCRIT 36.3 % (42.0-52.0); HEMOGLOBIN 11.8 g/dl (14.0-18.0); LYMPHOCYTES # 1.4 10^3/ul (0.8-2.9); LYMPHOCYTES % 8.6 % (15.0-51.0); MEAN CORPUSCULAR HEMOGLOBIN 29.8 pg (29.0-33.0); MEAN CORPUSCULAR HGB CONC 32.5 g/dl (32.0-37.0); MEAN CORPUSCULAR VOLUME 91.7 fl (82.0-101.0); MEAN PLATELET VOLUME 8.6 fl (7.4-10.4); MONOCYTE # 1.1 10^3/ul (0.3-0.9); MONOCYTES % 6.7 % (0.0-11.0); NEUTROPHIL # 12.8 10^3/ul (1.6-7.5); NEUTROPHILS % 79.3 % (39.0-77.0); PLATELET COUNT 476 10^3/UL (140-415); RED BLOOD COUNT 3.96 10^6/ul (4.70-6.10); RED CELL DISTRIBUTION WIDTH 14.4 % (11.5-14.5)
[2017-07-15 06:48] LABS: AMYLASE 322 U/L (11-123); ANION GAP 11 (8-16); BLOOD UREA NITROGEN 14 mg/dl (7-20); CALCIUM 8.3 mg/dl (8.4-10.2); CARBON DIOXIDE 27 mmol/L (21-31); CHLORIDE 106 mmol/L (97-110); CREATININE 0.82 mg/dl (0.61-1.24); GLUCOSE 128 mg/dl (70-220); LIPASE 1018 U/L (23-300); POTASSIUM 4.5 mmol/L (3.5-5.1); SODIUM 139 mmol/L (135-144)
[2017-07-15] MEDS: Insulin NOVOLOG SS MILD Algorithm (SS with meals and bedtime) SC ×4 (07:30→21:00)
[2017-07-15] MEDS: ASPIRIN 81 MG TAB NGT (08:40)
[2017-07-15] MEDS: LUBIPROSTONE 24 MCG CAP PO (08:40)
[2017-07-15] MEDS: DOXYCYCLINE 100 MG TAB PO ×2 (08:40→20:58)
[2017-07-15] MEDS: FUROSEMIDE 20 MG INJ IV (08:40)
[2017-07-15] MEDS: POLYETHYLENE GLYCOL 17 GM PACKET PO (08:41)
[2017-07-15] MEDS: POTASSIUM CHLORIDE (SR) 20 MEQ TAB PO (08:41)
[2017-07-15] MEDS: METOPROLOL 25 MG TAB PO ×2 (08:41→20:59)
[2017-07-15] MEDS: LORAZEPAM 2 MG INJ IV (14:35)
[2017-07-15] MEDS: ATORVASTATIN 40 MG TAB PO (20:59)
[2017-07-16] MEDS: ACCU-CHEK XX ×5 (02:00→21:00)
[2017-07-16] MEDS: ACETAMINOPHEN 325 MG TAB PO ×4 (03:51→20:42)
[2017-07-16] MEDS: ONDANSETRON 4 MG INJ IV (03:51)
[2017-07-16] MEDS: PANTOPRAZOLE (EC) 40 MG TAB PO (05:36)
[2017-07-16] MEDS: Insulin NOVOLOG SS MILD Algorithm (SS with meals and bedtime) SC ×4 (07:30→20:43)
[2017-07-16] MEDS: FUROSEMIDE 20 MG INJ IV (08:18)
[2017-07-16] MEDS: METOPROLOL 25 MG TAB PO ×2 (08:18→20:43)
[2017-07-16] MEDS: DOXYCYCLINE 100 MG TAB PO ×2 (08:18→20:42)
[2017-07-16] MEDS: POTASSIUM CHLORIDE (SR) 20 MEQ TAB PO (08:18)
[2017-07-16] MEDS: ASPIRIN 81 MG TAB NGT (08:19)
[2017-07-16 08:37] LABS: ADD MAN DIFF? NO
[2017-07-16 08:46] LABS: BASOPHIL # 0.1 10^3/ul (0.0-0.1); BASOPHILS % 0.6 % (0.0-2.0); EOSINOPHILS # 0.4 10^3/ul (0.0-0.5); EOSINOPHILS % 3.1 % (0.0-7.0); HEMATOCRIT 37.4 % (42.0-52.0); HEMOGLOBIN 12.2 g/dl (14.0-18.0); LYMPHOCYTES # 1.6 10^3/ul (0.8-2.9); LYMPHOCYTES % 12.1 % (15.0-51.0); MEAN CORPUSCULAR HEMOGLOBIN 30.2 pg (29.0-33.0); MEAN CORPUSCULAR HGB CONC 32.6 g/dl (32.0-37.0); MEAN CORPUSCULAR VOLUME 92.6 fl (82.0-101.0); MEAN PLATELET VOLUME 8.6 fl (7.4-10.4); MONOCYTES % 7.2 % (0.0-11.0); NEUTROPHIL # 9.8 10^3/ul (1.6-7.5); NEUTROPHILS % 74.4 % (39.0-77.0); PLATELET COUNT 542 10^3/UL (140-415); RED BLOOD COUNT 4.04 10^6/ul (4.70-6.10); RED CELL DISTRIBUTION WIDTH 14.6 % (11.5-14.5)
[2017-07-16 08:46] LABS: WHITE BLOOD COUNT 13.1 10^3/ul (4.8-10.8)
[2017-07-16 09:42] LABS: AMYLASE 407 U/L (11-123); ANION GAP 16 (8-16); BLOOD UREA NITROGEN 18 mg/dl (7-20); CALCIUM 8.6 mg/dl (8.4-10.2); CARBON DIOXIDE 24 mmol/L (21-31); CHLORIDE 105 mmol/L (97-110); CREATININE 0.99 mg/dl (0.61-1.24); GLUCOSE 112 mg/dl (70-220); LIPASE 1260 U/L (23-300); POTASSIUM 4.4 mmol/L (3.5-5.1); SODIUM 141 mmol/L (135-144)
[2017-07-16] MEDS ORDERED: FUROSEMIDE 20 MG INJ IV (15:00)
[2017-07-16] MEDS: LUBIPROSTONE 24 MCG CAP PO (20:42)
[2017-07-16] MEDS: ATORVASTATIN 40 MG TAB PO (20:42)
[2017-07-17] MEDS: ACCU-CHEK XX ×5 (02:00→20:26)
[2017-07-17] MEDS: PANTOPRAZOLE (EC) 40 MG TAB PO (05:41)
[2017-07-17] MEDS: Insulin NOVOLOG SS MILD Algorithm (SS with meals and bedtime) SC ×4 (07:30→20:29)
[2017-07-17] MEDS: METOPROLOL 25 MG TAB PO ×2 (08:52→20:24)
[2017-07-17] MEDS: LUBIPROSTONE 24 MCG CAP PO ×2 (08:53→20:25)
[2017-07-17] MEDS: FUROSEMIDE 20 MG INJ IV (08:53)
[2017-07-17] MEDS: POTASSIUM CHLORIDE (SR) 20 MEQ TAB PO (08:53)
[2017-07-17] MEDS: ASPIRIN 81 MG TAB NGT (08:53)
[2017-07-17] MEDS: DOXYCYCLINE 100 MG TAB PO ×2 (08:53→20:26)
[2017-07-17] MEDS: morphine LIQ (10 MG/5 ML) CUP PO ×2 (08:54→15:34)
[2017-07-17 09:02] LABS: ADD MAN DIFF? NO
[2017-07-17 09:09] LABS: BASOPHIL # 0.1 10^3/ul (0.0-0.1); BASOPHILS % 0.7 % (0.0-2.0); EOSINOPHILS # 0.4 10^3/ul (0.0-0.5); EOSINOPHILS % 2.7 % (0.0-7.0); HEMATOCRIT 37.2 % (42.0-52.0); HEMOGLOBIN 12.4 g/dl (14.0-18.0); LYMPHOCYTES # 1.4 10^3/ul (0.8-2.9); LYMPHOCYTES % 10.5 % (15.0-51.0); MEAN CORPUSCULAR HEMOGLOBIN 30.5 pg (29.0-33.0); MEAN CORPUSCULAR HGB CONC 33.3 g/dl (32.0-37.0); MEAN CORPUSCULAR VOLUME 91.4 fl (82.0-101.0); MEAN PLATELET VOLUME 9.5 fl (7.4-10.4); MONOCYTE # 1.1 10^3/ul (0.3-0.9); MONOCYTES % 7.9 % (0.0-11.0); NEUTROPHIL # 10.3 10^3/ul (1.6-7.5); NEUTROPHILS % 76.1 % (39.0-77.0); PLATELET COUNT 498 10^3/UL (140-415); RED BLOOD COUNT 4.07 10^6/ul (4.70-6.10); RED CELL DISTRIBUTION WIDTH 14.4 % (11.5-14.5)
[2017-07-17 09:09] LABS: WHITE BLOOD COUNT 13.6 10^3/ul (4.8-10.8)
[2017-07-17 09:37] LABS: AMYLASE 468 U/L (11-123); ANION GAP 14 (8-16); BLOOD UREA NITROGEN 20 mg/dl (7-20); CALCIUM 8.7 mg/dl (8.4-10.2); CARBON DIOXIDE 22 mmol/L (21-31); CHLORIDE 106 mmol/L (97-110); CREATININE 0.98 mg/dl (0.61-1.24); GLUCOSE 120 mg/dl (70-220); LIPASE 1294 U/L (23-300); POTASSIUM 4.3 mmol/L (3.5-5.1); SODIUM 138 mmol/L (135-144)
[2017-07-17] MEDS: ACETAMINOPHEN 325 MG TAB PO (20:26)
[2017-07-17] MEDS: ATORVASTATIN 40 MG TAB PO (20:26)
[2017-07-18] MEDS: ACCU-CHEK XX ×3 (02:00→12:29)
[2017-07-18] MEDS: morphine LIQ (10 MG/5 ML) CUP PO (04:36)
[2017-07-18] MEDS: PANTOPRAZOLE (EC) 40 MG TAB PO (05:40)
[2017-07-18] MEDS: Insulin NOVOLOG SS MILD Algorithm (SS with meals and bedtime) SC ×2 (07:30→11:30)
[2017-07-18] MEDS: ASPIRIN 81 MG TAB NGT (08:33)
[2017-07-18] MEDS: ACETAMINOPHEN 325 MG TAB PO ×2 (08:33→17:25)
[2017-07-18] MEDS: FUROSEMIDE 20 MG INJ IV (08:34)
[2017-07-18] MEDS: DOXYCYCLINE 100 MG TAB PO ×2 (08:34→20:21)
[2017-07-18] MEDS: POTASSIUM CHLORIDE (SR) 20 MEQ TAB PO (08:34)
[2017-07-18] MEDS: METOPROLOL 25 MG TAB PO ×2 (08:34→20:21)
[2017-07-18] MEDS: LUBIPROSTONE 24 MCG CAP PO ×2 (08:34→20:21)
[2017-07-18] MEDS: ATORVASTATIN 40 MG TAB PO (20:21)
[2017-07-19] MEDS: PANTOPRAZOLE (EC) 40 MG TAB PO (05:26)
[2017-07-19 08:27] LABS: ADD MAN DIFF? NO
[2017-07-19 08:29] LABS: BASOPHIL # 0.1 10^3/ul (0.0-0.1); BASOPHILS % 0.7 % (0.0-2.0); EOSINOPHILS # 0.4 10^3/ul (0.0-0.5); EOSINOPHILS % 3.3 % (0.0-7.0); HEMATOCRIT 36.5 % (42.0-52.0); HEMOGLOBIN 11.9 g/dl (14.0-18.0); LYMPHOCYTES # 1.5 10^3/ul (0.8-2.9); LYMPHOCYTES % 12.8 % (15.0-51.0); MEAN CORPUSCULAR HEMOGLOBIN 29.9 pg (29.0-33.0); MEAN CORPUSCULAR HGB CONC 32.6 g/dl (32.0-37.0); MEAN CORPUSCULAR VOLUME 91.7 fl (82.0-101.0); MEAN PLATELET VOLUME 8.7 fl (7.4-10.4); MONOCYTES % 8.6 % (0.0-11.0); NEUTROPHIL # 8.4 10^3/ul (1.6-7.5); NEUTROPHILS % 72.7 % (39.0-77.0); PLATELET COUNT 546 10^3/UL (140-415); RED BLOOD COUNT 3.98 10^6/ul (4.70-6.10); RED CELL DISTRIBUTION WIDTH 14.1 % (11.5-14.5)
[2017-07-19 08:29] LABS: WHITE BLOOD COUNT 11.5 10^3/ul (4.8-10.8)
[2017-07-19] MEDS: ASPIRIN 81 MG TAB NGT (08:29)
[2017-07-19] MEDS: DOXYCYCLINE 100 MG TAB PO ×2 (08:29→21:11)
[2017-07-19] MEDS: POTASSIUM CHLORIDE (SR) 20 MEQ TAB PO (08:29)
[2017-07-19] MEDS: LUBIPROSTONE 24 MCG CAP PO ×2 (08:29→21:00)
[2017-07-19] MEDS: FUROSEMIDE 20 MG INJ IV (08:30)
[2017-07-19] MEDS: morphine LIQ (10 MG/5 ML) CUP PO (08:30)
[2017-07-19] MEDS: METOPROLOL 25 MG TAB PO ×2 (08:30→21:12)
[2017-07-19 08:52] LABS: ANION GAP 16 (8-16); BLOOD UREA NITROGEN 23 mg/dl (7-20); CALCIUM 8.7 mg/dl (8.4-10.2); CARBON DIOXIDE 26 mmol/L (21-31); CHLORIDE 101 mmol/L (97-110); CREATININE 1.02 mg/dl (0.61-1.24); GLUCOSE 112 mg/dl (70-220); POTASSIUM 4.6 mmol/L (3.5-5.1); SODIUM 138 mmol/L (135-144)
[2017-07-19 20:24] LABS: LIPASE 814 U/L (23-300)
[2017-07-19] MEDS: ATORVASTATIN 40 MG TAB PO (21:12)
[2017-07-19] MEDS: HYDROCODONE/APAP (5/325) TAB PO (21:12)
== END 2017-07-19 21:30 | DRG 233 ==
LOC: E/R 09:14 → MS4 07-11 21:05 → ICU 07-02 10:36 → MS4 11:09
PROC: 4A023N7 Measurement of Cardiac Sampling and Pressure, Left Heart, Percutaneous Approach (ICD-10-PCS; 2017-07-02 09:30)
PROC: B211YZZ Fluoroscopy of Multiple Coronary Arteries using Other Contrast (ICD-10-PCS; 2017-07-02 09:30)
PROC: B215YZZ Fluoroscopy of Left Heart using Other Contrast (ICD-10-PCS; 2017-07-02 09:30)
PROC: 021309W Bypass Coronary Artery, Four or More Arteries from Aorta with Autologous Venous Tissue, Open Approach (ICD-10-PCS; principal; 2017-07-02 09:38)
PROC: 06BP4ZZ Excision of Right Saphenous Vein, Percutaneous Endoscopic Approach (ICD-10-PCS; 2017-07-02 09:38)
PROC: 5A02210 Assistance with Cardiac Output using Balloon Pump, Continuous (ICD-10-PCS; 2017-07-02 09:38)
PROC: 5A1945Z Respiratory Ventilation, 24-96 Consecutive Hours (ICD-10-PCS; 2017-07-02 09:38)
PROC: 30233N1 Transfusion of Nonautologous Red Blood Cells into Peripheral Vein, Percutaneous Approach (ICD-10-PCS; 2017-07-02 09:38)
PROC: 30233K1 Transfusion of Nonautologous Frozen Plasma into Peripheral Vein, Percutaneous Approach (ICD-10-PCS; 2017-07-02 09:38)
PROC: 30233R1 Transfusion of Nonautologous Platelets into Peripheral Vein, Percutaneous Approach (ICD-10-PCS; 2017-07-02 09:38)
DX: I21.4 Non-ST elevation (NSTEMI) myocardial infarction (principal); I50.23 Acute on chronic systolic (congestive) heart failure; J18.9 Pneumonia, unspecified organism; K85.90 Acute pancreatitis without necrosis or infection, unspecified; J95.821 Acute postprocedural respiratory failure; L03.115 Cellulitis of right lower limb; N17.9 Acute kidney failure, unspecified; I25.10 Atherosclerotic heart disease of native coronary artery without angina pectoris; E66.9 Obesity, unspecified; Z68.31 Body mass index [BMI] 31.0-31.9, adult; E78.5 Hyperlipidemia, unspecified; I11.0 Hypertensive heart disease with heart failure; D64.9 Anemia, unspecified; R31.9 Hematuria, unspecified; M21.371 Foot drop, right foot; I25.5 Ischemic cardiomyopathy; R19.7 Diarrhea, unspecified; S84.11XA Injury of peroneal nerve at lower leg level, right leg, initial encounter; X58.XXXA Exposure to other specified factors, initial encounter; Y92.239 Unspecified place in hospital as the place of occurrence of the external cause
CPT/HCPCS: 36415; 36430; 36592; 36600; 71045; 74176; 76700; 80048; 80053; 80061; 82150; 82270; 82550; 82553; 82803; 82962; 83690; 83735; 83880; 84100; 84155; 84300; 84439; 84443; 84484; 85014; 85018; 85025; 85378; 85610; 85730; 86850; 86900; 86901; 86920; 87040; 87070; 87081; 87086; 89190; 93005; 93306; 93312; 93325; 93458; 93880; 93922; 93970; 94002; 94003; 94640; 94664; 94770; 97110; 97116; 97161; 97530; 99291-25

== ENCOUNTER 2017-08-30 12:13 | Inpatient (IN) | payer OTHER ==
[2017-08-30] MEDS: HYDROCODONE/APAP (10/325) TAB PO (13:02)
[2017-08-30] MEDS: ONDANSETRON (ODT) 4 MG TAB ODT (13:02)
[2017-08-30 14:08] LABS: ADD MAN DIFF? NO
[2017-08-30 14:12] LABS: BASOPHIL # 0.1 10^3/ul (0.0-0.1); BASOPHILS % 0.9 % (0.0-2.0); EOSINOPHILS # 0.4 10^3/ul (0.0-0.5); EOSINOPHILS % 4.8 % (0.0-7.0); HEMATOCRIT 36.2 % (42.0-52.0); HEMOGLOBIN 11.8 g/dl (14.0-18.0); LYMPHOCYTES # 1.2 10^3/ul (0.8-2.9); LYMPHOCYTES % 14.8 % (15.0-51.0); MEAN CORPUSCULAR HEMOGLOBIN 29.9 pg (29.0-33.0); MEAN CORPUSCULAR HGB CONC 32.6 g/dl (32.0-37.0); MEAN CORPUSCULAR VOLUME 91.6 fl (82.0-101.0); MEAN PLATELET VOLUME 8.1 fl (7.4-10.4); MONOCYTE # 0.8 10^3/ul (0.3-0.9); MONOCYTES % 9.9 % (0.0-11.0); NEUTROPHIL # 5.7 10^3/ul (1.6-7.5); NEUTROPHILS % 69.2 % (39.0-77.0); PLATELET COUNT 345 10^3/UL (140-415); RED BLOOD COUNT 3.95 10^6/ul (4.70-6.10); RED CELL DISTRIBUTION WIDTH 14.1 % (11.5-14.5)
[2017-08-30 14:12] LABS: WHITE BLOOD COUNT 8.2 10^3/ul (4.8-10.8)
[2017-08-30 14:29] LABS: ANION GAP 16 (8-16); BLOOD UREA NITROGEN 22 mg/dl (7-20); CALCIUM 9.1 mg/dl (8.4-10.2); CARBON DIOXIDE 24 mmol/L (21-31); CHLORIDE 105 mmol/L (97-110); CREATININE 1.02 mg/dl (0.61-1.24); GLUCOSE 114 mg/dl (70-220); POTASSIUM 4.6 mmol/L (3.5-5.1); SODIUM 140 mmol/L (135-144)
[2017-08-30 14:40] LABS: INR 0.98; PROTIME 13.1 Sec (11.9-14.9)
[2017-08-30] MEDS: morphine 4 MG/ML VIAL IV (15:34)
[2017-08-30] MEDS: APIXABAN 5 MG TABLET PO (15:57)
[2017-08-30] MEDS: HYDROmorphONE 2 MG/ML SYG IV (17:28)
[2017-08-30] MEDS ORDERED: ONDANSETRON 4 MG INJ IV (17:30)
[2017-08-30] MEDS ORDERED: LEVALBUTEROL (NEB) 1.25 MG/0.5 ML AMP HHN (21:00)
[2017-08-30] MEDS ORDERED: NITROGLYCERIN (SL) 0.4 MG TAB SL (21:30)
[2017-08-30] MEDS: ENOXAPARIN 80 MG/0.8 ML SYG SC (21:39)
[2017-08-30] MEDS: HYDROCODONE/APAP (5/325) TAB PO (23:25)
[2017-08-31] MEDS: ACETAMINOPHEN 325 MG TAB PO ×3 (03:20→22:47)
[2017-08-31 06:02] LABS: ADD MAN DIFF? NO
[2017-08-31 06:05] LABS: WHITE BLOOD COUNT 7.7 10^3/ul (4.8-10.8)
[2017-08-31 06:05] LABS: BASOPHIL # 0.1 10^3/ul (0.0-0.1); BASOPHILS % 0.9 % (0.0-2.0); EOSINOPHILS # 0.5 10^3/ul (0.0-0.5); HEMOGLOBIN 11.6 g/dl (14.0-18.0); LYMPHOCYTES # 1.9 10^3/ul (0.8-2.9); LYMPHOCYTES % 24.5 % (15.0-51.0); MEAN CORPUSCULAR HGB CONC 33.1 g/dl (32.0-37.0); MEAN CORPUSCULAR VOLUME 90.4 fl (82.0-101.0); MEAN PLATELET VOLUME 8.4 fl (7.4-10.4); MONOCYTE # 0.7 10^3/ul (0.3-0.9); MONOCYTES % 9.3 % (0.0-11.0); NEUTROPHIL # 4.5 10^3/ul (1.6-7.5); NEUTROPHILS % 58.8 % (39.0-77.0); PLATELET COUNT 334 10^3/UL (140-415); RED BLOOD COUNT 3.87 10^6/ul (4.70-6.10)
[2017-08-31 06:27] LABS: ALANINE AMINOTRANSFERASE 33 IU/L (13-69); ALBUMIN 3.8 g/dl (3.3-4.9); ALBUMIN/GLOBULIN RATIO 1.18; ALKALINE PHOSPHATASE 75 IU/L (42-121); ANION GAP 12 (8-16); ASPARTATE AMINO TRANSFERASE 24 IU/L (15-46); BILIRUBIN,INDIRECT 0.3 mg/dl (0-1.1); BILIRUBIN,TOTAL 0.3 mg/dl (0.2-1.3); BLOOD UREA NITROGEN 22 mg/dl (7-20); CALCIUM 8.8 mg/dl (8.4-10.2); CARBON DIOXIDE 25 mmol/L (21-31); CHLORIDE 103 mmol/L (97-110); CREATININE 0.82 mg/dl (0.61-1.24); GLUCOSE 99 mg/dl (70-220); POTASSIUM 4.3 mmol/L (3.5-5.1); SODIUM 136 mmol/L (135-144)
[2017-08-31] MEDS: METOPROLOL 25 MG TAB PO ×2 (09:14→20:51)
[2017-08-31] MEDS: ASPIRIN (EC) 81 MG TAB PO (09:15)
[2017-08-31] MEDS: FUROSEMIDE 20 MG TAB PO (09:15)
[2017-08-31] MEDS: LUBIPROSTONE 24 MCG CAP PO ×2 (09:15→21:00)
[2017-08-31] MEDS: PANTOPRAZOLE (EC) 40 MG TAB PO (09:15)
[2017-08-31] MEDS: ENOXAPARIN 80 MG/0.8 ML SYG SC (09:50)
[2017-08-31] MEDS: HYDROCODONE/APAP (5/325) TAB PO ×2 (11:04→17:39)
[2017-08-31] MEDS: ATORVASTATIN 40 MG TAB PO (20:51)
[2017-09-01] MEDS: ACETAMINOPHEN 325 MG TAB PO ×4 (04:56→22:42)
[2017-09-01] MEDS: HYDROCODONE/APAP (5/325) TAB PO (07:50)
[2017-09-01] MEDS: LUBIPROSTONE 24 MCG CAP PO ×2 (08:03→20:20)
[2017-09-01] MEDS: FUROSEMIDE 20 MG TAB PO (08:04)
[2017-09-01] MEDS: METOPROLOL 25 MG TAB PO ×2 (08:04→20:21)
[2017-09-01] MEDS: PANTOPRAZOLE (EC) 40 MG TAB PO (08:04)
[2017-09-01] MEDS: ASPIRIN (EC) 81 MG TAB PO (08:05)
[2017-09-01] MEDS: APIXABAN 5 MG TABLET PO ×2 (12:08→20:21)
[2017-09-01 13:49] LABS: OCCULT BLOOD STOOL NEGATIVE (NEGATIVE)
[2017-09-01 14:40] LABS: OCCULT BLOOD STOOL NEGATIVE (NEGATIVE)
[2017-09-01] MEDS: ATORVASTATIN 40 MG TAB PO (20:21)
[2017-09-02] MEDS: ACETAMINOPHEN 325 MG TAB PO ×4 (01:54→19:36)
[2017-09-02] MEDS: ASPIRIN (EC) 81 MG TAB PO (08:43)
[2017-09-02] MEDS: PANTOPRAZOLE (EC) 40 MG TAB PO (08:43)
[2017-09-02] MEDS: FUROSEMIDE 20 MG TAB PO (08:44)
[2017-09-02] MEDS: APIXABAN 5 MG TABLET PO ×2 (08:44→20:49)
[2017-09-02] MEDS: LUBIPROSTONE 24 MCG CAP PO ×2 (08:44→20:49)
[2017-09-02] MEDS: METOPROLOL 25 MG TAB PO ×2 (08:44→20:53)
[2017-09-02 13:58] LABS: OCCULT BLOOD STOOL NEGATIVE (NEGATIVE)
[2017-09-02] MEDS: ATORVASTATIN 40 MG TAB PO (20:49)
[2017-09-02] MEDS: LOPERAMIDE 2 MG CAP PO (23:24)
[2017-09-03] MEDS: ACETAMINOPHEN 325 MG TAB PO ×3 (01:15→19:46)
[2017-09-03] MEDS: PANTOPRAZOLE (EC) 40 MG TAB PO (08:26)
[2017-09-03] MEDS: LUBIPROSTONE 24 MCG CAP PO ×2 (08:26→20:06)
[2017-09-03] MEDS: APIXABAN 5 MG TABLET PO ×2 (08:26→20:05)
[2017-09-03] MEDS: ASPIRIN (EC) 81 MG TAB PO (08:26)
[2017-09-03] MEDS: FUROSEMIDE 20 MG TAB PO (08:26)
[2017-09-03] MEDS: HYDROCODONE/APAP (5/325) TAB PO ×2 (08:27→14:31)
[2017-09-03] MEDS: METOPROLOL 25 MG TAB PO ×2 (08:27→20:05)
[2017-09-03] MEDS: ATORVASTATIN 40 MG TAB PO (20:05)
[2017-09-04] MEDS: ACETAMINOPHEN 325 MG TAB PO ×2 (00:44→12:42)
[2017-09-04] MEDS: HYDROCODONE/APAP (5/325) TAB PO ×2 (06:05→14:12)
[2017-09-04] MEDS: ASPIRIN (EC) 81 MG TAB PO (07:50)
[2017-09-04] MEDS: LUBIPROSTONE 24 MCG CAP PO (07:50)
[2017-09-04] MEDS: PANTOPRAZOLE (EC) 40 MG TAB PO (07:50)
[2017-09-04] MEDS: FUROSEMIDE 20 MG TAB PO (07:51)
[2017-09-04] MEDS: APIXABAN 5 MG TABLET PO (07:52)
[2017-09-04] MEDS: METOPROLOL 25 MG TAB PO (07:55)
== END 2017-09-04 18:20 | disposition home health service (06) | DRG 301 ==
LOC: E/R 12:13 → MS2 17:12
DX: I82.401 Acute embolism and thrombosis of unspecified deep veins of right lower extremity (principal); Z95.1 Presence of aortocoronary bypass graft; I10 Essential (primary) hypertension; E78.5 Hyperlipidemia, unspecified; M21.371 Foot drop, right foot; Z79.82 Long term (current) use of aspirin
CPT/HCPCS: 36415; 80048; 80053; 82270; 85025; 85610; 85730; 93971; 96374; 97162; 99285-25